=== PATIENT | female | born 1960 | race Caucasian/White ===

== ENCOUNTER 2022-03-01 22:36 | Emergency (ER) | payer MEDICAID ==
[~2022-03-01] VITALS: Ht 170.2 cm; Wt 90.0 kg
[2022-03-02] MEDS ORDERED: KETOROLAC 30MG/ML VIAL IV ONE (01:00)
[2022-03-02] MEDS ORDERED: MORPHINE SULFATE 4 MG/ML CPJ (NOT FOR IM USE) IV ONE (01:00)
[2022-03-02] MEDS ORDERED: HYDROCODONE/ACETAMINOPHEN 5/325MG TABLET PO ONE (07:15)
[2022-03-02 09:59] VITALS: BP 150/89
== END 2022-03-02 10:47 | disposition short-term general hospital (02) ==
LOC: ER 22:36 → CANBEDREQ 03-02 21:33
DX: S82.51XA Displaced fracture of medial malleolus of right tibia, initial encounter for closed fracture (principal); S72.411A Displaced unspecified condyle fracture of lower end of right femur, initial encounter for closed fracture; W18.39XA Other fall on same level, initial encounter; Y93.89 Activity, other specified; Y92.89 Other specified places as the place of occurrence of the external cause; Y99.8 Other external cause status; M25.00 Hemarthrosis, unspecified joint; Z20.822 Contact with and (suspected) exposure to COVID-19
CPT/HCPCS: 72170; 73562; 73610; 73700; 87426; 96374; 99285; C9803; J1885